=== PATIENT | male | born 1975 | race Two or more races ===

== ENCOUNTER 2024-07-07 07:00 | Day surgery (SDC) | payer MEDICAID, SELFPAY ==
[2024-07-06 14:17] VITALS: BMI 35.4
[2024-07-07] VITALS (9 sets, daily range): BP systolic 111–176; BP diastolic 73–110; PULSE 71–87; RESP 12–20; TEMP 36.4–36.7; O2SAT 93–100; BMI 36.4
[2024-07-07] MEDS: fentaNYL CIT INJ 50 mCg/ML AMP 2ML (ASD USE ONLY) IV (08:46)
[2024-07-07] MEDS: MIDAZOLAM INJ 1 MG/ML VIAL 2 ML (ASD USE ONLY) 2 MG IV (08:46)
[2024-07-07] MEDS: RINGERS LACTATED 1000 ML 1,000 ML 60 ML IV (08:46)
[2024-07-07] MEDS: DiphenhydrAMINE INJ 50 MG/ML VIAL 25 MG IV (08:47)
== END 2024-07-07 09:30 | disposition home or self-care (01) ==
PROVIDERS: PCP Nurse Practitioner Family; Referring Provider Internal Medicine Gastroenterology; Visit Provider Internal Medicine Gastroenterology
PROC: 0DBE8ZX Excision of Large Intestine, Via Natural or Artificial Opening Endoscopic, Diagnostic (ICD-10-PCS; CPT 45380; principal; 2024-07-07 08:15)
DX: Z12.11 Encounter for screening for malignant neoplasm of colon (principal); D12.0 Benign neoplasm of cecum; K64.1 Second degree hemorrhoids; K57.30 Diverticulosis of large intestine without perforation or abscess without bleeding
CPT/HCPCS: 45380; A4649; J1200; J2250; J3010; J7120

== ENCOUNTER → 2024-10-07 | Outpatient (CLI) | payer MEDICAID, SELFPAY ==
--- NOTE | 2024-10-07 10:25 | XR_ITS ---
Examination: Foot, right, 3 views Technique: AP, oblique, lateral views foot, 3 views Date and time of exam: October 07, 2024 1041 hours INDICATIONS: Heel pain beginning 3 weeks ago. FINDINGS: No fracture 3 mm plantar bony calcaneal spur No cortical bone destruction or erosive arthritis IMPRESSION: 3 mm plantar bony calcaneal spur
== END | disposition home or self-care (01) ==
PROVIDERS: PCP Nurse Practitioner Family; Referring Provider Nurse Practitioner Family; Visit Provider Nurse Practitioner Family
DX: M77.31 Calcaneal spur, right foot (principal)
CPT/HCPCS: 73630